=== PATIENT | male | born 1950 | race Caucasian/White ===

== ENCOUNTER → 2018-12-25 | Outpatient (CLI) | payer OTHER, MEDICARE ==
[~2018-12-25] MED LIST: GADOBUTROL 10 ML VIAL IVP ONE
== END ==
LOC: FIMAGING 12:37
PROVIDERS: ATTEND Specialist
DX: N40.0 Benign prostatic hyperplasia without lower urinary tract symptoms (principal); K57.30 Diverticulosis of large intestine without perforation or abscess without bleeding
CPT/HCPCS: 72197; 76377; A9585; 82565-PO

== ENCOUNTER 2019-03-07 13:31 | Emergency (ER) | payer OTHER, MEDICARE ==
--- NOTE | 2019-03-07 15:16 | EDPHY ---
H & P Stated Complaint: FALL 8 FT OFF LADDER HIT L RIB/SIDE BACK DENIES LOC Time Seen by Provider: 03/07/19 15:01 HPI/ROS: CHIEF COMPLAINT: Fall, left thigh pain HISTORY OF PRESENT ILLNESS: 68-year-old male presents after a fall with left thigh pain. He was standing on a ladder with his feet approximately 8 ft off the ground. He was working with a board, when the board slipped and he fell onto the ground. He landed onto his left side. Onset of moderate left thigh pain after the fall. Also mild left sided torso pain. He thinks that his left cheek struck a step. Denies headache or neck pain. EMS on scene cleared him. He then drove down from the [facility] to the emergency department. He was placed in a C-spine collar on arrival. REVIEW OF SYSTEMS: complete 10 point ROS negative except as noted in the HPI Source: Patient - Personal History Current Tetanus Diphtheria and Acellular Pertussis (TDAP): Yes - Medical/Surgical History Hx Asthma: No Hx Chronic Respiratory Disease: No Hx Diabetes: No Hx Cardiac Disease: No Hx Renal Disease: No Hx Cirrhosis: No Hx Alcoholism: No Hx HIV/AIDS: No Hx Splenectomy or Spleen Trauma: No Other PMH: HTN CHOLY - Family History Significant Family History: No pertinent family hx - Social History Smoking Status: Former smoker Alcohol Use: Sober Drug Use: None Additional Social History: - Physical Exam Exam: General Appearance: Alert, pleasant Head: No scalp swelling or tenderness Eyes: No conjunctival erythema, PERRLA, EOMI ENT, Mouth: Linear ecchymosis left cheek, swelling and abrasions of the right anterior oral mucosa, no bony tenderness, no hemotympanum Neck: Nontender, full range of motion without pain Respiratory: mild left lateral chest wall tenderness, lungs clear bilaterally Cardiovascular: Regular rate and rhythm Abdomen: Abdomen is soft and nontender Skin: No lacerations Back: No midline T/L/S tenderness Extremities: Pelvis is stable and nontender; left thigh-tenderness, ecchymosis and swelling laterally, range of motion of the left hip and left knee without pain; no other extremity tenderness or signs of injury Neurological: A&Ox3, normal motor function, normal sensory exam, cranial nerves intact Psychiatric: Mood and affect normal Constitutional: Initial Vital Signs Temperature (C) 36.9 C 03/07/19 13:37 Heart Rate 83 03/07/19 13:37 Respiratory Rate 18 03/07/19 13:37 Blood Pressure 108/70 03/07/19 13:37 O2 Sat (%) 91 L 03/07/19 13:37 O2 Delivery Mode Room Air Allergies/Adverse Reactions: tetracycline Allergy (Verified 03/07/19 13:36) Home Medications: Medication Instructions Recorded Adderall 10 mg Tablet 03/07/19 Benazepril HCl 03/07/19 Protonix 03/07/19 SIMVASTATIN 03/07/19 Wellbutrin Xl 03/07/19 Medical Decision Making - Diagnostics Imaging Results: CXR: no fx or PTX Imaging: I viewed and interpreted images myself ED Course/Re-evaluation: This patient presents after an 8 ft fall with contusions and abrasions. Cspine cleared by me on arrival by nexus criteria. CXR negative, no PTX or rib fx. Obs in ED, remained stable; repeat exam unchanged. No sign of significant hemorrhage, fracture or closed head injury. Differential Diagnosis: includes though not limited to ICH, fx, PTX, hemorrhage Departure - Departure Disposition: Home, Routine, Self-Care Clinical Impression: Multiple contusions Condition: Good Instructions: Contusion in Adults (ED) Additional Instructions: Ibuprofen 600 mg 3 times daily while the pain persists. You will be more sore tomorrow. Return for pain out of proportion to your injuries, abdominal pain, shortness of breath, severe headache or any concerns. Referrals: Guillermo Tolbert DO [Doctor of Osteopathy] - As per Instructions
[2019-03-07 17:08] VITALS: BP 151/89
== END 2019-03-07 17:08 | disposition home or self-care (01) ==
DX: S70.12XA Contusion of left thigh, initial encounter (principal); S20.212A Contusion of left front wall of thorax, initial encounter; S00.81XA Abrasion of other part of head, initial encounter; W11.XXXA Fall on and from ladder, initial encounter; Z87.891 Personal history of nicotine dependence

== ENCOUNTER → 2019-03-13 | Outpatient (CLI) | payer OTHER, MEDICARE | LOC: FIMAGING 17:35 ==